=== PATIENT | female | born 1980 | race Caucasian/White ===

== ENCOUNTER 2017-01-09 11:55 | Outpatient (CLI) ==
[2013-09-13 19:40] VITALS: BMI 23.2
[2017-01-09] MEDS ORDERED: REMICADE IV ONE (12:11)
[2017-01-09] MEDS ORDERED: SODIUM CHLORIDE IV ONE (12:11)
== END 2017-01-09 11:56 | disposition home or self-care (01) ==
LOC: OPMED 11:55
PROVIDERS: ATTEND Internal Medicine Gastroenterology
DX: K51.90 Ulcerative colitis, unspecified, without complications (principal)
CPT/HCPCS: 96365; 96366

== ENCOUNTER 2017-03-15 11:59 | Outpatient (CLI) ==
[2013-09-13 19:40] VITALS: BMI 23.2
[2017-03-15] MEDS ORDERED: SODIUM CHLORIDE IV ONE (12:06)
[2017-03-15] MEDS ORDERED: REMICADE IV ONE (12:06)
== END 2017-03-15 12:00 | disposition home or self-care (01) ==
LOC: OPMED 11:59
PROVIDERS: ATTEND Internal Medicine Gastroenterology
DX: K51.90 Ulcerative colitis, unspecified, without complications (principal)
CPT/HCPCS: 96360

== ENCOUNTER 2017-05-02 06:31 | Day surgery (SDC) ==
[2013-09-13 19:40] VITALS: BMI 23.2
[2017-05-02] MEDS ORDERED: LIDOCAINE 1% 20 ML MDV ID ONE (07:15)
[2017-05-02 07:26] LABS: URINE PREGNANCY INTERNAL QC INTERNAL QC VALID
[2017-05-02] MEDS ORDERED: DIPRIVAN 20 ML VIAL IVP ONE (08:00)
[2017-05-02] MEDS ORDERED: VERSED ONE (08:00)
[2017-05-02 09:20] VITALS: BP 106/71; TEMP 97.6
--- NOTE | 2017-05-03 08:55 | OP ---
INDICATIONS FOR PROCEDURE: 37-year-old female presents for surveillance colonoscopy exam. 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 She has been relatively asymptomatic from a colitis standpoint. She does get recurrent oral lesions consistent with small aphtous ulcers. MEDICATIONS: SEE ANESTHESIA NOTES. PROCEDURE: SURVEILLANCE COLONOSCOPY, BIOPSY. REPORT: The risks, benefits, alternatives and limitations were discussed in detail with the patient. Informed consent was obtained. After adequate sedation was achieved, a digital rectal exam revealed good tone, no masses. The colonoscope was introduced into the rectum and advanced under direct visual guidance to the cecum. The cecum was identified by the appendiceal orifice and IC valve. I was able to intubate the terminal ileum and examine distally 8 cm. This appeared normal. I then withdrew the scope back in the cecum. There is about a 1" patch of inflammation around the appendiceal orifice. This was a small cecal patch. The remaining cecum appeared unremarkable and then in the proximal ascending there is another 1" to 2" patch of inflammation. This was very subtle mild active inflammation. I obtained four quadrant biopsies from the cecum. I then slowly withdrew the scope in a circumferential manner examining the mucosa quite carefully. I looked on the proximal and distal side of folds and flexures as best as possible. I was able to retroflex the scope in the right colon and left colon to increase visualization. Roughly around 60 cm there is a small pseudopolyp that I did biopsy. This was at the area of surveillance biopsies but there were no other abnormalities noted through the entire length of the colon. This included retroflex view of the anal canal. I obtained surveillance biopsies from the cecum, the hepatic flexure, mild transverse colon 60 cm, 50 cm, 40 cm, 30 cm, 20 cm and then throughout the rectum. The prep was good. The withdrawal time was 16 minutes and 35 seconds. The patient tolerated the procedure well with stable vital signs and pulse oximetry throughout. IMPRESSION: 1. Two (1/4 (quarter) to 1/2 (50 cent) size patches of inflammation in the cecum and proximal ascending colon as described above. 2. Benign appearing pseudopolyp at 60 cm. 3. Otherwise unremarkable exam. RECOMMENDATIONS: 1. She will continue the same medications. 2. Await surveillance biopsies to evaluate for hidden dysplasia. 3. Regarding her oral lesions, I previously talked to her primary care physician and I think it is reasonable to go ahead and try on a course of suppressive Valacyclovir 500 mg daily to see if this would offer benefit. 4. Repeat colonoscopy examination again in one year for surveillance. 5. Office visit in November for her annual checkup, sooner if signs or symptoms would indicate otherwise. CC: DR. PAT OCASIO
== END 2017-05-02 10:39 | disposition home or self-care (01) ==
LOC: SURG 06:31
PROVIDERS: ATTEND Internal Medicine Gastroenterology
DX: K51.90 Ulcerative colitis, unspecified, without complications (principal); D12.0 Benign neoplasm of cecum; D12.3 Benign neoplasm of transverse colon; D12.4 Benign neoplasm of descending colon; D12.5 Benign neoplasm of sigmoid colon; D12.7 Benign neoplasm of rectosigmoid junction; K63.5 Polyp of colon; K12.0 Recurrent oral aphthae
CPT/HCPCS: 81025

== ENCOUNTER 2017-05-10 12:03 | Outpatient (CLI) ==
[2013-09-13 19:40] VITALS: BMI 23.2
[2017-05-10] MEDS ORDERED: SODIUM CHLORIDE IV ONE (12:16)
[2017-05-10] MEDS ORDERED: REMICADE IV ONE (12:16)
== END 2017-05-10 12:04 | disposition home or self-care (01) ==
LOC: OPMED 12:03
PROVIDERS: ATTEND Internal Medicine Gastroenterology
DX: K51.90 Ulcerative colitis, unspecified, without complications (principal)
CPT/HCPCS: 96365; 96366

== ENCOUNTER 2017-07-05 12:03 | Outpatient (CLI) ==
[2013-09-13 19:40] VITALS: BMI 23.2
[2017-07-05] MEDS ORDERED: SODIUM CHLORIDE IV ONE (12:20)
[2017-07-05] MEDS ORDERED: REMICADE IV ONE (12:20)
[2017-07-05 13:06] VITALS: BP 112/70; TEMP 97.4
== END 2017-07-05 12:04 | disposition home or self-care (01) ==
LOC: OPMED 12:03
PROVIDERS: ATTEND Internal Medicine Gastroenterology
DX: K51.90 Ulcerative colitis, unspecified, without complications (principal)
CPT/HCPCS: 96366

== ENCOUNTER 2017-08-30 11:54 | Outpatient (CLI) ==
[2013-09-13 19:40] VITALS: BMI 23.2
[2017-08-30] MEDS ORDERED: SODIUM CHLORIDE IV ONE (12:28)
[2017-08-30] MEDS ORDERED: REMICADE IV ONE (12:28)
[2017-08-30 15:47] VITALS: BP 117/79; TEMP 98.8
== END 2017-08-30 11:55 | disposition home or self-care (01) ==
LOC: OPMED 11:54
PROVIDERS: ATTEND Internal Medicine Gastroenterology
DX: K51.00 Ulcerative (chronic) pancolitis without complications (principal)
CPT/HCPCS: 96365; 96366

== ENCOUNTER 2017-10-26 12:01 | Outpatient (CLI) ==
[2013-09-13 19:40] VITALS: BMI 23.2
[2017-10-26 12:20] VITALS: BP 125/79; TEMP 98.2
[2017-10-26] MEDS ORDERED: REMICADE IV ONE (12:20)
[2017-10-26] MEDS ORDERED: SODIUM CHLORIDE IV ONE (12:20)
== END 2017-10-26 12:02 | disposition home or self-care (01) ==
LOC: OPMED 12:01
PROVIDERS: ATTEND Internal Medicine Gastroenterology
DX: K51.00 Ulcerative (chronic) pancolitis without complications (principal)
CPT/HCPCS: 96365; 96366

== ENCOUNTER 2018-01-30 13:00 | Outpatient (CLI) ==
[2013-09-13 19:40] VITALS: BMI 23.2
[2018-01-30 13:11] VITALS: BP 112/63; TEMP 98.2
[2018-01-30] MEDS: REMICADE IV ONE (13:23)
[2018-01-30] MEDS: SODIUM CHLORIDE IV ONE (13:23)
== END 2018-01-30 13:01 | disposition home or self-care (01) ==
LOC: OPMED 13:00
PROVIDERS: ATTEND Internal Medicine Gastroenterology
DX: K51.00 Ulcerative (chronic) pancolitis without complications (principal)
CPT/HCPCS: 96365; 96366

== ENCOUNTER 2018-04-24 08:06 | Day surgery (SDC) ==
[2013-09-13 19:40] VITALS: BMI 23.2
[2018-04-24] MEDS ORDERED: LIDOCAINE 1% 20 ML MDV ID STA (08:50)
[2018-04-24] MEDS ORDERED: VERSED ONE (10:05)
[2018-04-24] MEDS ORDERED: DIPRIVAN 20 ML VIAL IVP ONE (10:05)
[2018-04-24 14:31] VITALS: BP 119/78; TEMP 97.9
--- NOTE | 2018-04-25 09:42 | OP ---
INDICATIONS FOR PROCEDURE: 38-year-old female presents for surveillance colonoscopy. She has a history of de oliveira ulcerative colitis greater than 8 years duration. MEDICATIONS: SEE ANESTHESIA NOTES. PROCEDURE: COLONOSCOPY, SURVEILLANCE BIOPSIES. REPORT: The risks, benefits, alternatives and limitations were discussed in detail with the patient. Informed consent was obtained. After adequate sedation was achieved, digital rectal exam revealed good tone, no masses. The colonoscope was introduced into the rectum and advanced under direct visual guidance to the cecum. The cecum was identified by the appendiceal orifice and IC valve. I then slowly withdrew the scope in a circumferential manner examining the mucosa quite carefully. I looked on the proximal and distal side of folds and flexures as best as possible. Colonic mucosa is unremarkable its entire length. It did have the burned out appearance consistent with prior colitis disease. On retroflex view of the anal canal there were small non engorged internal hemorrhoids. I obtained surveillance biopsies from four quadrants in the cecum, proximal transverse, distal transverse, descending, sigmoid and rectal areas. The patient tolerated the procedure well with stable vital signs and pulse oximetry throughout. The anal canal was also unremarkable on forward and retroflex views. The withdrawal time 7 minutes and 32 seconds. IMPRESSION: 1. SMALL NONENGORGED INTERNAL HEMORRHOIDS 2. OTHERWISE UNREMARKABLE COLONOSCOPY EXAM RECOMMENDATIONS: 1. Will await surveillance biopsy results. If everything is unremarkable, I suggest surveillance colonoscopy examination again in one year. 2. I discussed with her prior to the procedure about the vaccination Hepatitis A and B. She does not believe that she has been vaccinated. We will check hepatitis A total antibody and hepatitis B surface antibody to determine her immunity. If she is not immune, then we will contact her and she will go to her local [facility] to get the vaccinations. 3. We also discussed the need for dermatology surveillance. She has not been to dermatology in a little while and she will make an appointment with her oracle database architect for surveillance exam. 4. Next, will see her back in the office as needed and in November. CC: DR. TRAY OCASIO
== END 2018-04-24 11:45 | disposition home or self-care (01) ==
LOC: SURG 08:06
PROVIDERS: ATTEND Internal Medicine Gastroenterology
DX: K51.90 Ulcerative colitis, unspecified, without complications (principal); K64.8 Other hemorrhoids
CPT/HCPCS: 36415; 81025; 86706; 86708

== ENCOUNTER 2018-05-17 11:53 | Outpatient (CLI) ==
[2013-09-13 19:40] VITALS: BMI 23.2
[2018-05-17] MEDS ORDERED: REMICADE IV ONE (12:17)
[2018-05-17] MEDS ORDERED: SODIUM CHLORIDE IV ONE (12:17)
[2018-05-17 12:20] VITALS: BP 114/77; TEMP 98.4
== END 2018-05-17 11:54 | disposition home or self-care (01) ==
LOC: OPMED 11:53
PROVIDERS: ATTEND Internal Medicine Gastroenterology
DX: K51.00 Ulcerative (chronic) pancolitis without complications (principal)
CPT/HCPCS: 96365; 96366

== ENCOUNTER 2018-12-18 09:15 | Day surgery (SDC) ==
[2013-09-13 19:40] VITALS: BMI 23.2
[2018-12-18 10:11] VITALS: TEMP 97.6
[2018-12-18] MEDS ORDERED: LIDOCAINE 1% 20 ML MDV ID STA (10:11)
[2018-12-18 10:25] LABS: URINE PREGNANCY TEST NEGATIVE (NEGATIVE)
[2018-12-18] MEDS ORDERED: DIPRIVAN 20 ML VIAL IVP ONE (10:45)
[2018-12-18 13:44] VITALS: BP 112/72
--- NOTE | 2018-12-19 10:49 | OP ---
INDICATIONS FOR PROCEDURE: 38-year-old female who was diagnosed with de oliveira ulcerative colitis in their teens. She has been having some bright red blood per rectum lately with mucus. She has been maintained on Remicade therapy for several years and has done well. She presents now for colonoscopy exam. MEDICATIONS: SEE ANESTHESIA NOTES. PROCEDURE: COLONOSCOPY, BIOPSY. REPORT: The risks, benefits, alternatives and limitations were discussed in detail with the patient. Informed consent was obtained. After adequate sedation was achieved, a digital rectal exam revealed good tone, no masses. The colonoscope was introduced into the rectum and advanced under direct visual guidance to the cecum. The cecum was identified by the appendiceal orifice and IC valve. I intubated the terminal ileum and examined the distal 10 cm. This appeared unremarkable. I then withdrew the scope back into the cecum. The cecum appeared relatively unremarkable. There was scarring present from prior colitis. There was no active disease noted in the cecum. I biopsied the cecum for histological review. I then slowly withdrew the scope in circumferential manner examining the mucosa quite carefully. I looked on the proximal and distal side of folds and flexures as best as possible. The colonic mucosa was consistent with burned out colitis in the right colon all the way down to the distal transverse colon. In the distal transverse colon I started seeing a little bit of patches of active inflammation immediately around the splenic flexure. In the very proximal descending colon there is moderate active colitis. This active colitis extended down to the anus. It was manifested by erythema, loss of vasculature, adherent mucus, apthous ulcerations. Edema was present as well. No other abnormalities were noted. I did obtain background biopsies from the proximal transverse colon, distal transverse colon, descending colon, sigmoid and rectum. The scope was retroflexed to look at anal canal which was unremarkable other than the active colitis. The patient tolerated the procedure well with stable vital signs and pulse oximetry throughout. IMPRESSION: 1. Recurrent moderate active ulcerative colitis involving the left colon from the very distal transverse colon to the anus. RECOMMENDATIONS: 1. Await pathology results. 2. She is to get labs as scheduled from office visit last week. 3. Will see her back in the office next week to go over results and discuss therapeutic options. 4. Repeat colonoscopy to be determined after therapeutic options decided. I expect it will be done in 6 to 12 months time depending her clinical course. CC: TRAY HERNANDEZ, DO OCASIO
== END 2018-12-18 12:20 | disposition home or self-care (01) ==
LOC: SURG 09:15
PROVIDERS: ATTEND Internal Medicine Gastroenterology
DX: K51.00 Ulcerative (chronic) pancolitis without complications (principal); K62.5 Hemorrhage of anus and rectum
CPT/HCPCS: 81025